=== PATIENT | male | born 1945 | race Caucasian/White ===

== ENCOUNTER 2023-03-22 08:38 | Outpatient (CLI) | payer MEDICARE, MEDICAID, SELFPAY | END 2023-03-22 08:39 | disposition home or self-care (01) | LOC: AMB 03-28 15:47 | PROVIDERS: Visit Provider Family Medicine | DX: R53.1 Weakness (principal) | CPT/HCPCS: A0998 ==

== ENCOUNTER 2023-11-27 11:56 | Outpatient (CLI) | payer MEDICARE, MEDICAID, SELFPAY | END 2023-11-27 11:57 | disposition home or self-care (01) | LOC: AMB 12-03 13:24 | PROVIDERS: PCP Family Medicine; Visit Provider Emergency Medicine | DX: M54.9 Dorsalgia, unspecified (principal); R11.2 Nausea with vomiting, unspecified | CPT/HCPCS: A0425; A0427 ==

== ENCOUNTER 2023-11-27 12:41 | Inpatient (IN) | payer MEDICARE, MEDICAID, SELFPAY ==
[2023-11-27 13:01] VITALS: BP 105/78; PULSE 95; RESP 16; TEMP 37.1; O2SAT 98; BMI 26.5
--- NOTE | 2023-11-27 13:12 | XR_ITS ---
Patient: RENITA GARCIA Facility:?[facility] Patient ID:?[id number] Site Patient ID:?[id number]. Site :?[id number] Study:?XRay-Chest 1 VIEW PORTABLE-11/27/2023 1:59:33 PM Ordering Physician:DIANDRA Final Report: Indication: Cough Technique: One view of the chest Comparison: None Findings: The heart is normal in size. Likely moderate hiatal hernia. Right mid to lower lung zone airspace opacities, concerning for pneumonia in the appropriate clinical context, likely with component of atelectasis. Trace left basilar linear atelectasis/scarring. No pleural effusion or pneumothorax. No displaced fractures. Impression: Right mid to lower lung zone airspace opacities, concerning for pneumonia. Dictated by Chandu Rankin MD @ 11/27/2023 2:03:57 PM Signed by:?Chandu Rankin MD @11/27/2023 2:03:57 PM (Electronic Signature)
[2023-11-27] MEDS: MORPHINE 4 MG/ML INJ IVP (13:40)
--- NOTE | 2023-11-27 13:41 | ED.GENADULT ---
HPI - General Adult General Date Seen: 11/27/23 Chief complaint: Weakness Stated complaint: Mental Health Time Seen by Provider: 11/27/23 12:43 Source: patient, EMS and RN notes reviewed Mode of arrival: ambulatory Limitations: no limitations History of Present Illness HPI narrative: Patient is a 78-year-old male with longstanding MS, lives at home with his , Lucila. When he called 911 today secondary to weakness and chronic pain for the patient, notes that these have both been issues longstanding, he tells me 6 years. He does say that he feels as if things have gotten gradually worse, to the point that his , his primary school bus dispatcher, is overwhelmed. He made a comment to police about how he just wished he was , he does agree with that statement to me, he does feels that he has been dealing with all of this for so long and is feeling somewhat hopeless about his circumstances. However he also says he is not at all suicidal and does not have any plan to do himself harm. He did have a recent upper respiratory infection with cough and wheezing, he says he got sick on November 11. He feels that the respiratory symptoms are improving but he still using his inhaler he says 10-15 times a day, and the weakness is worse since this illness. He has not run fevers. He occasionally feels short of breath although not right now. He has not had chest pain. He has not had vomiting or diarrhea, feels he has been able to eat and drink without difficulty. He does say that he feels it is becoming difficult for his to manage things at home. He said they had home health start coming about a year ago to do some physical therapy and he did find that helpful, but more recently feels that he is declined. He sees Dr. Serra, met with her in a virtual visit at some point this spring but he is not quite sure when. They apparently did not discuss any of these issues according to his report. He has chronic pain, he says he has pain throughout his pelvis, of his spine and across his shoulders. This is longstanding. He says he takes tramadol and Tylenol but pain is not controlled. Related Data Home Medications Medication Instructions Recorded Confirmed acetaminophen 650 mg 1,300 mg PO Q8H 11/27/23 11/27/23 tablet,extended release albuterol sulfate 90 mcg/actuation 2 inh inhalation Q4H PRN 11/27/23 11/27/23 aerosol inhaler cetirizine 10 mg tablet (Zyrtec) 10 mg PO DAILY PRN 11/27/23 11/27/23 fluoxetine 40 mg capsule 40 mg PO DAILY 11/27/23 11/27/23 fluticasone 500 mcg-salmeterol 50 1 inh inhalation BID 11/27/23 11/27/23 mcg/dose blistr powdr for inhalation (Advair Diskus) montelukast 10 mg tablet 10 mg PO DAILY 11/27/23 11/27/23 tramadol 50 mg tablet 50 mg PO TID 11/27/23 11/27/23 Allergies Allergy/AdvReac Type Severity Reaction Status Date / Time No Known Drug Allergies Allergy Verified 11/27/23 13:50 Review of Systems Status of ROS: Reports: 10 or more systems reviewed and unremarkable except as noted in History and below Exam Narrative: Exam Narrative: Vital signs as noted above. In general, an alert, nontoxic male. Being easily. Head: Normocephalic, atraumatic. Eyes: Pupils are equal reactive. Extraocular movements are full. Conjunctivae are normal. ENT: Mucous membranes are moist. Neck: Supple without lymphadenopathy. Heart: Regular rate and rhythm. No murmur or rub. Lungs: Scattered coarse breath sounds bilaterally, no wheezes, no increased work of breathing. Abdomen: Soft and nontender. No organomegaly. Extremities: Well perfused. No edema. No calf tenderness. Pulses intact. Neurologic: Patient is alert and oriented to person and place. Speech is fluent. Face is symmetric. Moves all extremities equally. Affect: Normal. Skin: Warm and dry. Well perfused. Const: Vital Signs, click to edit/add: Vital Signs - 24 hr 11/27/23 13:01 Temperature 98.7 F Pulse Rate [Pulse Oximeter] 95 Respiratory Rate 16 Blood Pressure [Ri ght Upper Arm] 105/78 Pulse Oximetry 98 Oxygen Delivery Me thod Room Air Documenting provider has reviewed patient's vital signs: yes Course Course ED Course: Patient presents for acute on chronic weakness secondary to MS, poorly controlled chronic pain, despondency due to his health status. He did have a recent illness, I think it is reasonable to look for reversible facets of this, will get a chest x-ray, routine labs to include CRP and sed rate. Disposition pending depending on what we find there, it sounds as if he feels that he is failing at home at this time, but they have not made any plans toward placement in a different living arrangement. Patient's workup is notable for a mildly elevated white blood cell count of 11.5, hemoglobin is 9.3. He is not sure what his baseline is but does not believe he is usually anemic. Metabolic panel notable for a sodium of 135, potassium 3.4, BUN of 38, creatinine 0.5. Blood sugars 124. Lactate is normal at 1.8. Calcium is little low at 7.8. Magnesium normal. LFTs are unremarkable. CRP is 1.9, sed rate is pending. COVID, influenza and RSV are negative, point of care troponin is 0.01. Chest x-ray by my review showed a right lower lobe infiltrate, read as right mid lower lung zone airspace opacities concerning for pneumonia by Radiology. I do think it is reasonable to admit him to the hospital, hopefully as his pneumonia improves he will feel like his strength is a little bit improved. Otherwise, may need to have a conversation about alternative living arrangements. Sed rate is still pending, he has had this chronic pain for quite some time but I am unsure whether anyone has specifically looked for polymyalgia rheumatica. I did give him prednisone as he says he has been using his inhaler frequently. I do not hear any active bronchospasm right now. He had Rocephin 1 g IV as well as azithromycin 500 mg orally. He does not describe symptoms that are suspicious for aspiration, he is unaware of any swallowing difficulties. Vital Signs Vital signs: Initial Vital Signs Temperature 98.7 F 11/27/23 13:01 Temperature Source Temporal Artery Scan 11/27/23 13:01 Pulse Rate 95 11/27/23 13:01 Pulse Rhythm Regular 11/27/23 13:01 Pulse Strength 3+ Normal 11/27/23 13:01 Respiratory Rate 16 11/27/23 13:01 Blood Pressure 105/78 11/27/23 13:01 Blood Pressure Mean 87 11/27/23 13:01 Blood Pressure Position Supine 11/27/23 13:01 Pulse Oximetry 98 11/27/23 13:01 Oxygen Delivery Method Room Air 11/27/23 13:01 Vital Signs Temperature 98.7 F 11/27/23 13:01 Pulse Rate 95 11/27/23 13:01 Respiratory Rate 16 11/27/23 13:01 Blood Pressure 105/78 11/27/23 13:01 Pulse Oximetry 98 11/27/23 13:01 Oxygen Delivery Method Room Air 11/27/23 13:01 Temperature 98.7 F 11/27/23 13:01 Pulse Rate 95 11/27/23 13:01 Respiratory Rate 16 11/27/23 13:01 Blood Pressure 105/78 11/27/23 13:01 Pulse Oximetry 98 11/27/23 13:01 Oxygen Delivery Method Room Air 11/27/23 13:01 Medications Administered Medications: Discontinued Medications Generic Name Dose Route Start Last Admin Trade Name Gageq PRN Reason Stop Dose Admin Azithromycin 500 mg 11/27/23 14:28 11/27/23 14:50 Azithromycin 250 Mg Tablet PO 11/27/23 14:29 500 mg ONCE ONE Administration Sodium Chloride 500 mls @ 500 mls/hr 11/27/23 13:17 11/27/23 14:22 0.9 % Sodium Chloride 500 Ml IV 11/27/23 14:16 Infused .Q1H ONE Infusion Ceftriaxone Sodium 1 gm/ 100 mls @ 200 mls/hr 11/27/23 14:28 11/27/23 14:50 Sodium Chloride IVPB 11/27/23 14:29 200 mls/hr ONCE ONE Administration Morphine Sulfate 4 mg 11/27/23 13:17 11/27/23 13:40 Morphine 4 Mg/Ml Inj IVP 11/27/23 13:18 4 mg ONCE ONE Administration Prednisone 60 mg 11/27/23 14:28 11/27/23 14:50 Prednisone 20 Mg Tablet PO 11/27/23 14:29 60 mg ONCE ONE Administration Medical Decision Making Lab Data Labs: Lab Results 11/27/23 11/27/23 11/27/23 Range/Units 13:13 13:14 13:32 WBC (4.50-11.00) K/uL RBC (4.30-5.90) m/uL Hgb (13.5-17.5) gm/dL Hct (37.0-53.0) % MCV (80-100) fL MCH (26-34) pg MCHC (32-36) gm/dL RDW Coeff of Danilo (11.5-15.5) % Plt Count (140-440) K/uL Neut % (Auto) (42.0-72.0) % Lymph % (Auto) (20-44) % [place] % (Auto) (0.0-11.0) % Eos % (Auto) (0.0-7.0) % Baso % (Auto) (0.0-3.0) % Neut # (Auto) (1.7-7.0) K/uL Lymph # (Auto) (0.90-2.90) K/uL [place] # (Auto) (0.00-0.90) K/UL Eos # (Auto) (0.00-0.50) K/uL Baso # (Auto) (0.00-0.30) K/uL Abs Immat Gran (auto) (0.00-0.30) K/uL Imm/Tot Granulo (auto) % ESR (2-15) mm/hr Sodium (135-149) mmol/L Potassium (3.6-5.1) mmol/L Chloride (96-114) mmol/L Carbon Dioxide (20-32) mmol/L Anion Gap (7-15) mEq/L BUN (7-30) mg/dL Creatinine (0.5-1.5) mg/dL Estimated Creat Clear Estimated GFR ml/min Glucose (60-115) mg/dL Lactate (0.5-1.9) mmol/L Calcium (8.4-10.6) mg/dL Magnesium (1.5-2.6) mg/dL Total Bilirubin (0.1-1.5) mg/dL Direct Bilirubin (0.0-0.5) mg/dL AST (12-35) U/L ALT (4-50) U/L Alkaline Phosphatase (40-150) U/L C-Reactive Protein (0.5-1.0) mg/dL Total Protein (6.0-8.3) g/dL Albumin (3.3-5.0) g/dL Urine Color Yellow (Yellow) Urine Appearance Clear (Clear) Urine pH 6.0 (5.0-8.5) Ur Specific [place] 1.010 (1.000-1.030) Urine Protein Negative (Negative) Urine Glucose (UA) Negative (Negative) Urine Ketones Negative (Negative) Urine Blood Negative (Negative) Urine Nitrite Negative (Negative) Urine Bilirubin Negative (Negative) Urine Urobilinogen 1.0 (0.2-1.0) Ur Leukocyte Esterase 1+ A (Negative) SARS-CoV-2 (PCR) Negative SARS-CoV-2 (Negative) Influenza Type A (PCR) Negative PCR FLU A (Negative) Influenza Type B (PCR) Negative PCR FLU B (Negative) RSV (PCR) Negative PCR RSV (Negative) POC Troponin I 0.01 (0.01-0.04) ng/ml 11/27/23 Range/Units 13:34 WBC 11.56 H (4.50-11.00) K/uL RBC 2.93 L (4.30-5.90) m/uL Hgb 9.3 L (13.5-17.5) gm/dL Hct 28.5 L (37.0-53.0) % MCV 97 (80-100) fL MCH 32 (26-34) pg MCHC 33 (32-36) gm/dL RDW Coeff of Danilo 13.2 (11.5-15.5) % Plt Count 306 (140-440) K/uL Neut % (Auto) 76.3 H (42.0-72.0) % Lymph % (Auto) 11.4 L (20-44) % [place] % (Auto) 10.5 (0.0-11.0) % Eos % (Auto) 0.0 (0.0-7.0) % Baso % (Auto) 0.2 (0.0-3.0) % Neut # (Auto) 8.80 H (1.7-7.0) K/uL Lymph # (Auto) 1.30 (0.90-2.90) K/uL [facility] # (Auto) 1.20 H (0.00-0.90) K/UL Eos # (Auto) 0.00 (0.00-0.50) K/uL Baso # (Auto) 0.00 (0.00-0.30) K/uL Abs Immat Gran (auto) 0.20 (0.00-0.30) K/uL Imm/Tot Granulo (auto) 1.6 % ESR 30 H (2-15) mm/hr Sodium 135 (135-149) mmol/L Potassium 3.4 L (3.6-5.1) mmol/L Chloride 101 (96-114) mmol/L Carbon Dioxide 28 (20-32) mmol/L Anion Gap 6 L (7-15) mEq/L BUN 38 H (7-30) mg/dL Creatinine 0.5 (0.5-1.5) mg/dL Estimated Creat Clear 64.89 Estimated GFR 106 ml/min Glucose 124 H (60-115) mg/dL Lactate 1.8 (0.5-1.9) mmol/L Calcium 7.8 L (8.4-10.6) mg/dL Magnesium 2.2 (1.5-2.6) mg/dL Total Bilirubin 0.4 (0.1-1.5) mg/dL Direct Bilirubin 0.3 (0.0-0.5) mg/dL AST 20 (12-35) U/L ALT 20 (4-50) U/L Alkaline Phosphatase 47 (40-150) U/L C-Reactive Protein 1.9 H (0.5-1.0) mg/dL Total Protein 5.6 L (6.0-8.3) g/dL Albumin 2.9 L (3.3-5.0) g/dL Urine Color (Yellow) Urine Appearance (Clear) Urine pH (5.0-8.5) Ur Specific [place] (1.000-1.030) Urine Protein (Negative) Urine Glucose (UA) (Negative) Urine Ketones (Negative) Urine Blood (Negative) Urine Nitrite (Negative) Urine Bilirubin (Negative) Urine Urobilinogen (0.2-1.0) Ur Leukocyte Esterase (Negative) SARS-CoV-2 (PCR) (Negative) Influenza Type A (PCR) (Negative) Influenza Type B (PCR) (Negative) RSV (PCR) (Negative) POC Troponin I (0.01-0.04) ng/ml Discharge Plan Discharge Clinical Impression: Weakness, Multiple sclerosis, Pneumonia Patient Disposition: Admitted As Observation Condition: Stable
[2023-11-27 13:53] LABS: Lactate Sepsis w/Reflex* 1.8 mmol/L (0.5-1.9)
[2023-11-27 13:56] LABS: Basophils Percent Auto 0.2 % (0.0-3.0); Hematocrit 28.5 % (37.0-53.0); Hemoglobin* 9.3 gm/dL (13.5-17.5); Immature Granulocytes Pct Auto 1.6 %; Lymphocytes Percent Auto 11.4 % (20-44); Mean Corpuscular HGB Conc 33 gm/dL (32-36); Mean Corpuscular Hemoglobin 32 pg (26-34); Mean Corpuscular Volume 97 fL (80-100); Monocytes Percent Auto 10.5 % (0.0-11.0); Neutrophils Percent Auto 76.3 % (42.0-72.0); Platelet Count* 306 K/uL (140-440); RDW Coefficient of Variation % 13.2 % (11.5-15.5); Red Blood Count 2.93 m/uL (4.30-5.90); White Blood Count* 11.56 K/uL (4.50-11.00)
[2023-11-27] MEDS: 0.9 % SODIUM CHLORIDE 500 ML 500 ML IV (14:00)
[2023-11-27 14:01] LABS: Troponin, Point-of-Care* 0.01 ng/ml (0.01-0.04)
[2023-11-27 14:03] LABS: Slide Review Reflex No
[2023-11-27 14:08] LABS: Albumin* 2.9 g/dL (3.3-5.0); Chloride* 101 mmol/L (96-114)
[2023-11-27 14:09] LABS: Potassium* 3.4 mmol/L (3.6-5.1); Sodium* 135 mmol/L (135-149)
[2023-11-27 14:11] LABS: Anion Gap 6 mEq/L (7-15); Aspartate Amino Transferase* 20 U/L (12-35); Bilirubin Direct* 0.3 mg/dL (0.0-0.5); Bilirubin Total* 0.4 mg/dL (0.1-1.5); Carbon Dioxide* 28 mmol/L (20-32); Creatinine* 0.5 mg/dL (0.5-1.5); Est. Creatinine Clearance* 64.89; Estimated Glomerular Filt Rate 106 ml/min; Total Protein* 5.6 g/dL (6.0-8.3)
[2023-11-27 14:12] LABS: Alanine Aminotransferase* 20 U/L (4-50); Alkaline Phosphatase* 47 U/L (40-150); Blood Urea Nitrogen* 38 mg/dL (7-30); Calcium* 7.8 mg/dL (8.4-10.6); Glucose* 124 mg/dL (60-115); Magnesium* 2.2 mg/dL (1.5-2.6)
[2023-11-27 14:14] LABS: C Reactive Protein* 1.9 mg/dL (0.5-1.0)
[2023-11-27 14:17] LABS: PCR FLU A Negative PCR FLU A (Negative); PCR FLU B Negative PCR FLU B (Negative); PCR RSV Negative PCR RSV (Negative); SARS PCR* Negative SARS-CoV-2 (Negative)
[2023-11-27] MEDS: cefTRIAXone 1 GM in 0.9 % SODIUM CHLORIDE Mini-bag 100 ML IVPB (14:50)
[2023-11-27] MEDS: predniSONE 20 MG TABLET 60 MG PO (14:50)
[2023-11-27] MEDS: AZITHROMYCIN 250 MG TABLET 500 MG PO (14:50)
[2023-11-27 14:54] LABS: Erythrocyte SedimentationRate* 30 mm/hr (2-15)
[2023-11-27 16:20] LABS: Appearance Urine Clear (Clear); Bilirubin Urine Negative (Negative); Blood Urine Negative (Negative); Color Urine Yellow (Yellow); Glucose Urine Negative (Negative); Ketones Urine Negative (Negative); Leukocyte Esterase Urine 1+ (Negative); Nitrite Urine Negative (Negative); Protein Urine Negative (Negative)
[2023-11-27 16:34] LABS: RBC Urine 0-2 (0-2)
[2023-11-27 16:35] LABS: Bacteria Urine Moderate
[2023-11-27 16:45] VITALS: BP 91/65; PULSE 95; RESP 20; TEMP 36.9; O2SAT 97; BMI 27.2
[2023-11-27 19:00] VITALS: BP 97/68; PULSE 93; RESP 22; TEMP 37.4; O2SAT 98
--- NOTE | 2023-11-27 19:32 | PM.IMHP1 ---
Hospitalist- H&P: HPI History of Present Illness Date Seen: 11/27/23 Chief complaint: Mental Health Narrative: James Starks is a 78 year old man who ordinarily resides at home with his , Lucila, presents for assessment of increasing weakness. 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 He is gradually losing his ability to care for himself. His is assuming greater and greater responsibility for all of his cares at home. About 2 weeks ago he started to notice that his chronic cough was productive of thicker sputum. Ordinarily it is clear and thin. Over time the sputum color became green. He has been using his albuterol meter dose inhaler with increased frequency up to 15 times daily in an effort to try to help his cough and sense of wheezing. He does not administer is inhaler with an supervisor customer complaint service or chamber. His chronic pain has increased also during the same time frame. Able to get by for the most part by taking his tramadol 50 mg and acetaminophen 650 mg 3 times daily. He tries to take these every 8 hours. Denies fevers or rigors. Has had episodes of diaphoresis however. Acknowledges a sense of increasing dyspnea with exertion. Denies dyspnea at rest. Denies paroxysmal nocturnal dyspnea or orthopnea. Denies chest heaviness, pressure, tightness, or pain. Review of Systems Status of ROS: Reports: 10 or more systems reviewed and unremarkable except as noted in History and below Narrative: Does not routinely seek out medical help. Has not seen his physician in person for a few years. Did have a virtual visit with his primary care physician, Dr. Serra, on 09/04/2023. Requires extensive assist with most of his ADLs. Utilizes wheelchair for locomotion. Denies night sweats or weight loss. Denies change in pattern of bowel or bladder function. Denies swelling of joints or extremities. Has been using fluoxetine for several years due to depressed symptoms. Acknowledges increased sense of depression and hopelessness as his condition has been evolving over the last 2 weeks. Denies suicidal thoughts or ideations, or plans to hurt himself in any way. States in no uncertain terms that if he were to he is prepared and ready for this. On the other hand he states if we can help him through this that he would also be grateful. Requests DNR DNI resuscitation status. Designates his , Lucila, as his power of contracts attorney for health should that be required. [facility] Medical History (Updated 11/27/23 @ 20:08 by Zenon Phillips MD) History of tobacco use ?Z87.891 - Personal history of nicotine dependence (ICD-10) Edema of both lower extremities ?R60.0 - Localized edema (ICD-10) Anxiety and depression ?F41.9 - Anxiety disorder, unspecified (ICD-10) ?F32.A - Depression, unspecified (ICD-10) Moderate persistent asthma ?J45.40 - Moderate persistent asthma, uncomplicated (ICD-10) History of lower GI bleeding ?Z87.19 - Personal history of other diseases of the digestive system (ICD-10) Chronic pain ?G89.29 - Other chronic pain (ICD-10) Osteoarthritis, hip, bilateral ?M16.0 - Bilateral primary osteoarthritis of hip (ICD-10) Multiple sclerosis, primary progressive ?G35 - Multiple sclerosis (ICD-10) Family History Son Anxiety Social History What is your current living situation?: I presently have a place to live Problems where you live: no known problems Problems where you live details: unable to bring W/C into bathroom In the past 12 months, utilities in danger of being shut off: no In past 12 months, lack of transportation kept you from medical appts, meetings, work, or getting things needed for daily living: no In the past 12 mos, have been you worried that your food would run out before you had money to buy more?: never true In the past 12 mos, the food you bought just didn't last and you didn't have money to buy more?: never true Smoking Status: Former smoker What tobacco products do you use: cigarettes Smoking quit date/years: >15 years ago Do you use any of these nicotine containing products: None Second hand tobacco smoke exposure: No How often do you have a drink containing alcohol: never How often do you have six or more drinks on one occasion: Never AUDIT-C Alcohol total score: 0 Non-prescribed substance use: marijuana (any form) Non-prescribed substance use details: medical cannabis- tea & edibles Caffeine: Yes (coffee) How often does anyone, including family, friends and others, physically hurt you: never How often does anyone, including family, friends and others, insult or talk down to you: never How often does anyone, including family, friends and others, threaten you with harm: never How often does anyone, including family, friends and others, scream or curse at you: never service: No Meds Home Medications and Allergies Home Medications Medication Instructions Recorded Confirmed Type acetaminophen 650 mg 1,300 mg PO Q8H 11/27/23 11/27/23 History tablet,extended release albuterol sulfate 90 mcg/actuation 2 inh inhalation Q4H PRN 11/27/23 11/27/23 History aerosol inhaler cetirizine 10 mg tablet (Zyrtec) 10 mg PO DAILY PRN 11/27/23 11/27/23 History fluoxetine 40 mg capsule 40 mg PO DAILY 11/27/23 11/27/23 History fluticasone 500 mcg-salmeterol 50 1 inh inhalation BID 11/27/23 11/27/23 History mcg/dose blistr powdr for inhalation (Advair Diskus) montelukast 10 mg tablet 10 mg PO DAILY 11/27/23 11/27/23 History tramadol 50 mg tablet 50 mg PO TID 11/27/23 11/27/23 History Allergies Allergy/AdvReac Type Severity Reaction Status Date / Time No Known Drug Allergies Allergy Verified 11/27/23 13:50 Exam Narrative: Exam Narrative: I examined patient in his hospital room. Appears comfortable and in no acute distress. Vision and hearing are adequate. Does have decreased hearing, but certainly able to engage in normal conversation. Alert, oriented to self, place, time, situation. Purse lip breathing. Utilizing accessory muscles of respiration. Cranial nerves 3-12 grossly normal. Dentition in fair repair with some missing teeth. Oropharynx benign. Nasal mucosa is normal. No icterus or conjunctival injection. Neck is supple. Midline trachea. No adenopathy in the head or neck region. Lungs with end inspiratory wheezing as well as mild expiratory wheezing bilaterally. Heart tones with regular rhythm and occasional missed beats. Abdomen with active bowel sounds, soft, nontender. Extremities with edema. Generally weak. Requires assistance with moving on the bed. Const: Vital Signs, click to edit/add: Vital Signs - 24 hr 11/27/23 13:01 11/27/23 16:45 11/27/23 16:45 Temperature 98.7 F 98.5 F Pulse Rate [Pulse Oximeter] 95 95 Respiratory Rate 16 20 20 Blood Pressure [Ri ght Arm] 91/65 Blood Pressure [Ri ght Upper Arm] 105/78 Pulse Oximetry 98 97 97 Oxygen Delivery Me thod Room Air Room Air Room Air Hospitalist - H&P: Result Labs Labs: Short CBC 11/27/23 Range/Units 13:34 WBC 11.56 H (4.50-11.00) K/uL Hgb 9.3 L (13.5-17.5) gm/dL Hct 28.5 L (37.0-53.0) % Plt Count 306 (140-440) K/uL BMP 11/27/23 13:34 Sodium 135 Potassium 3.4 L Chloride 101 Carbon Dioxide 28 BUN 38 H Creatinine 0.5 Glucose 124 H Calcium 7.8 L Liver Function 11/27/23 Range/Units 13:34 Total Bilirubin 0.4 (0.1-1.5) mg/dL Direct Bilirubin 0.3 (0.0-0.5) mg/dL AST 20 (12-35) U/L ALT 20 (4-50) U/L Alkaline Phosphatase 47 (40-150) U/L Albumin 2.9 L (3.3-5.0) g/dL Urine 11/27/23 Range/Units 13:14 Urine Color Yellow (Yellow) Urine Appearance Clear (Clear) Urine pH 6.0 (5.0-8.5) Ur Specific [place] 1.010 (1.000-1.030) Urine Protein Negative (Negative) Urine Glucose (UA) Negative (Negative) Imaging Chest x-ray: Attestation: I have reviewed the pertinent imaging results. Radiologist's impression: Impression: Right mid to lower lung zone airspace opacities, concerning for pneumonia. Assessment and Plan Assessment and plan (1) Right lower lobe pneumonia: Problem comment: - blood cultures obtained. - ceftriaxone 1 g IV Q 24 hours, azithromycin 500 mg orally once than 250 mg daily for 4 more doses. Status: Acute (2) Asthma exacerbation: Problem comment: - prednisone 60 mg orally given in the emergency department. Will continue on prednisone 30 mg daily for 4 more days. - schedule albuterol nebulizers 3 times daily and continue with p.r.n. albuterol meter dose inhaler administration. - respiratory therapy consultation: Teach proper administration of meter dose inhaler with spacer, teach appropriate use of Aerobika device. - normal saline x2 L at 125 mL/hour Status: Acute (3) Anemia: Problem comment: - this is new. Hemoglobin on 08/10/2018 was 16.2 with MCV of 87 and RDW of 13.2. Presently his hemoglobin is 9.3 with MCV of 97 and RDW of 13.2. - check fecal occult blood, monitor hemoglobin, check iron studies, folate level, vitamin B12 level. Status: Acute (4) Multiple sclerosis, primary progressive: Problem comment: - first diagnosed in 2018. Progressively worsening over time. - not receiving active treatment for this. Status: Acute (5) Weakness: Problem comment: - this has been progressing rather rapidly over course of the past 2 weeks since he has had the onset of his pneumonia symptoms. - likely multifactorial from underlying multiple sclerosis, but may be worsening because of the acute illness with the pneumonia, also related to his low hemoglobin. - will ask Physical therapy and Occupational therapy to assist with assessment and intervention. - initiated discussion with patient and about the possibility of short-term residential facility transitional care services. They will consider this. Status: Acute (6) Chronic pain: Problem comment: - known bilateral hip osteoarthritis. May have polymyalgia rheumatica. We are starting prednisone to treat his asthma flare up and will see if this helps with some of his aches and pains and arthralgias as well. Status: Acute Plan 1. Reviewed impression and plans with patient and . Answered their questions. 2. They are agreeable with above stated plans and recommendations. Total Time Spent Total Time Spent: 70 minutes
[2023-11-27] MEDS: TRAMADOL HCL 50 MG TABLET PO ×2 (19:54→23:11)
[2023-11-27] MEDS: 0.9 % SODIUM CHLORIDE 1000 ml 1,000 ML 125 ML IV (19:55)
[2023-11-27] MEDS: ACETAMINOPHEN 325 MG TABLET 650 MG PO (21:53)
[2023-11-27] MEDS: ALBUTEROL SULFATE 2.5 MG/3 ML VIAL.NEB NEB (21:54)
[2023-11-27] MEDS: ENOXAPARIN 30 MG/0.3ML INJ SUBCUT (21:54)
--- NOTE | 2023-11-27 23:05 | PC.NURSE ---
End of shift [id number]: Pt arrived to floor @ 1515. He is A&O and VSS. H/o MS- pt is W/C bound baseline but he is able to pivot to chair or W/C at home. Utilizing Jerad lift Ax2 for transfers. Pt is incontinent/continent of urine ? uses the urinal independently in bed. Total incontinence of bowels. Pt had a small BM upon arrival this afternoon and none since- Fecal Occult has yet to be collected. Low-grade fever this evening, T-max 99.3- scheduled Tylenol given @ 2155. PIV in left FA infusing NS @ 125 mL/hr. Pt has chronic pain r/t progression of disease- rates pain at 8/10 and located from his hips up his spine to his posterior neck. Pt takes tramadol at home & missed his 1400 dose so he was given a 1x dose @ 2000 which in turn, pushed his scheduled 2100 dose back to 2300. LLE 3+ edema and RLE 2+ edema- TEDS applied & SCD?s in place. LS inspiratory & expiratory wheezing with a productive cough. Droplet precautions initiated for PNX. ?
[2023-11-27 23:42] VITALS: BP 96/65; PULSE 93; RESP 20; TEMP 37.3; O2SAT 91; O2SAT 96
[2023-11-28] VITALS (11 sets, daily range): BP systolic 90–138; BP diastolic 53–84; PULSE 69–93; RESP 12–20; TEMP 36.4–37.5; O2SAT 90–99
[2023-11-28] MEDS: ACETAMINOPHEN 325 MG TABLET 650 MG PO ×4 (03:11→20:20)
[2023-11-28] MEDS: MELATONIN 3 MG TABLET PO (03:37)
[2023-11-28] MEDS: 0.9 % SODIUM CHLORIDE 1000 ml 1,000 ML 125 ML IV (03:41)
[2023-11-28 06:15] LABS: HCO3 VBG 30 mmol/L (21-28); Lactate* 1.2 mmol/L (0.5-1.9); PCO2 VBG 43 mmHG (40-50); PO2 VBG 50.8 mmHG (25-47); pH VBG 7.458 (7.32-7.43)
[2023-11-28 06:19] LABS: Hematocrit 22.1 % (37.0-53.0); Immature Reticulocyte Fraction 21.3 % (2.3-13.4); Mean Corpuscular HGB Conc 33 gm/dL (32-36); Mean Corpuscular Hemoglobin 32 pg (26-34); Mean Corpuscular Volume 97 fL (80-100); Platelet Count* 266 K/uL (140-440); Red Blood Count 2.28 m/uL (4.30-5.90); Reticulocyte Hemoglobin Equivi 33.8 pg (29.0-35.0); Reticulocyte Percent 2.4 % (0.5-2.0); Reticulocytes Absolute 0.06 # (0.03-0.08); White Blood Count* 9.92 K/uL (4.50-11.00)
[2023-11-28 06:23] LABS: Hemoglobin* 7.2 gm/dL (13.5-17.5); Slide Review Reflex No
[2023-11-28 06:36] LABS: Chloride* 103 mmol/L (96-114); Potassium* 3.6 mmol/L (3.6-5.1); Sodium* 135 mmol/L (135-149)
[2023-11-28 06:39] LABS: Anion Gap 1 mEq/L (7-15); Blood Urea Nitrogen* 27 mg/dL (7-30); Carbon Dioxide* 31 mmol/L (20-32); Creatinine* 0.5 mg/dL (0.5-1.5); Est. Creatinine Clearance* 64.89; Estimated Glomerular Filt Rate 106 ml/min
[2023-11-28 06:40] LABS: Calcium* 7.7 mg/dL (8.4-10.6); Glucose* 115 mg/dL (60-115); Magnesium* 2.2 mg/dL (1.5-2.6); Phosphorus* 3.2 mg/dL (2.5-4.5)
[2023-11-28 06:50] LABS: Iron* 91 ug/dL (49-181)
[2023-11-28 06:55] LABS: Procalcitonin* 0.07 ng/mL (<0.50)
[2023-11-28 06:59] LABS: Percent Iron Saturation 43 % (20-50); Total Iron Binding Capacity 211 ug/dL (261-462)
[2023-11-28 07:28] LABS: Vitamin B12* 489 pg/mL (243-894)
--- NOTE | 2023-11-28 07:30 | PM.IMPN1 ---
Progress Note: A&P Assessment and plan (1) Anemia: Problem details: - this is new. Hemoglobin on 08/10/2018 was 16.2 with MCV of 87 and RDW of 13.2. Presently his hemoglobin is 9.3 with MCV of 97 and RDW of 13.2. - check fecal occult blood - Hgb down to 7.2 on 11/28/23; patient amenable to transfusion of 1U PRBCs. PPI initiated 11/27, EGD scheduled 11/27 Status: Acute (2) Right lower lobe pneumonia: Problem details: - blood cultures obtained - ceftriaxone 1 g IV Q 24 hours, azithromycin 500 mg orally once than 250 mg daily for 4 more doses Status: Acute (3) Asthma exacerbation: Problem details: - prednisone 60 mg orally given in the emergency department. Will continue on prednisone 30 mg daily for 4 more days. - schedule albuterol nebulizers 3 times daily and continue with p.r.n. albuterol meter dose inhaler administration. - respiratory therapy consultation: Teach proper administration of meter dose inhaler with spacer, teach appropriate use of Aerobika device. - normal saline x2 L at 125 mL/hour Status: Acute (4) Multiple sclerosis, primary progressive: Problem details: - first diagnosed in 2018. Progressively worsening over time. - not receiving active treatment for this. Status: Acute (5) Weakness: Problem details: - this has been progressing rather rapidly over course of the past 2 weeks since he has had the onset of his pneumonia symptoms - likely multifactorial from underlying multiple sclerosis, but may be worsening because of the acute illness with the pneumonia, also related to his low hemoglobin - will ask Physical therapy and Occupational therapy to assist with assessment and intervention - initiated discussion with patient and about the possibility of short-term detention facility transitional care services, considering Status: Acute (6) Chronic pain: Problem details: - known bilateral hip osteoarthritis, pain flare may represent PMR (microcytic anemia and elevated ESR on labs drawn 11/27/23) - Prednisone initiated 11/26, will continue to evaluate for pain management efficacy Status: Acute Subjective Date Seen: 11/28/23 Interval history: James was admitted to the hospital last night for progressive weakness and cough + sputum. He was noted to have pneumonia (presumably community acquired) on CXR 11/26, Rocephin and Azithromycin initiated upon admission. Not requiring supplemental oxygen. He was also noted to have anemia with a Hemoglobin of 9.3 (unknown recent baseline, per chart review his Hgb was >16 in 2018). No melena or BRBPR, no abdominal pain today. Did note that his stomach was sore last week, no known history of gastritis. This morning, he's still noting back pain (flare of chronic pain), possibly positional (normally sits in his wheelchair during the day, has been in the bed since admission), no other pain complaints. Morning Hemoglobin is 7.2 Exam Narrative: Exam Narrative: GEN: Alert and laying comfortably in bed, does not appear toxic HEENT: EOMIs bilaterally, + conjunctival pallor CV: RRR R: LCTA bilaterally, air movement adequate Skin: No concerning skin lesions or rashes on exposed skin Psych: Appropriate Const: Vital Signs, click to edit/add: Vital Signs - 24 hr 11/27/23 13:01 11/27/23 16:45 11/27/23 16:45 Temperature 98.7 F 98.5 F Pulse Rate [Pulse Oximeter] 95 95 Respiratory Rate 16 20 20 Blood Pressure [Le ft Arm] Blood Pressure [Ri ght Arm] 91/65 Blood Pressure [Ri ght Upper Arm] 105/78 Pulse Oximetry 98 97 97 Oxygen Delivery Me thod Room Air Room Air Room Air 11/27/23 19:00 11/27/23 23:42 11/27/23 23:42 Temperature 99.3 F Pulse Rate [Pulse Oximeter] 93 93 Respiratory Rate 22 20 20 Blood Pressure [Le ft Arm] Blood Pressure [Ri ght Arm] 97/68 Blood Pressure [Ri ght Upper Arm] Pulse Oximetry 98 96 Oxygen Delivery Me thod Room Air Room Air 11/27/23 23:42 11/28/23 03:00 Temperature 99.2 F 98.8 F Pulse Rate [Pulse Oximeter] 93 93 Respiratory Rate 20 20 Blood Pressure [Le ft Arm] 90/53 L Blood Pressure [Ri ght Arm] 96/65 Blood Pressure [Ri ght Upper Arm] Pulse Oximetry 91 92 Oxygen Delivery Me thod Room Air Room Air Labs Labs: Laboratory Results - last 24 hr 11/27/23 11/27/23 11/27/23 13:13 13:14 13:32 WBC RBC Hgb Hct MCV MCH MCHC RDW Coeff of Danilo Plt Count Neut % (Auto) Lymph % (Auto) [place] % (Auto) Eos % (Auto) Baso % (Auto) Neut # (Auto) Lymph # (Auto) [place] # (Auto) Eos # (Auto) Baso # (Auto) Abs Immat Gran (auto) Imm/Tot Granulo (auto) ESR Absolute Retic Percent Retic Immature Retic Fraction Retic Hgb Equivalent VBG pH VBG pCO2 VBG pO2 VBG HCO3 Sodium Potassium Chloride Carbon Dioxide Anion Gap BUN Creatinine Estimated Creat Clear Estimated GFR Glucose Lactate Calcium Phosphorus Magnesium Iron TIBC % Saturation Total Bilirubin Direct Bilirubin AST ALT Alkaline Phosphatase C-Reactive Protein Total Protein Albumin Procalcitonin Urine Color Yellow Urine Appearance Clear Urine pH 6.0 Ur Specific [place] 1.010 Urine Protein Negative Urine Glucose (UA) Negative Urine Ketones Negative Urine Blood Negative Urine Nitrite Negative Urine Bilirubin Negative Urine Urobilinogen 1.0 Ur Leukocyte Esterase 1+ A Urine RBC 0-2 Urine WBC 5-10 A Ur Squamous Epith Cells None Urine Bacteria Moderate A SARS-CoV-2 (PCR) Negative SARS-CoV-2 Influenza Type A (PCR) Negative PCR FLU A Influenza Type B (PCR) Negative PCR FLU B RSV (PCR) Negative PCR RSV POC Troponin I 0.01 11/27/23 11/28/23 13:34 05:52 WBC 11.56 H 9.92 RBC 2.93 L 2.28 L Hgb 9.3 L 7.2 L* Hct 28.5 L 22.1 L MCV 97 97 MCH 32 32 MCHC 33 33 RDW Coeff of Danilo 13.2 Plt Count 306 266 Neut % (Auto) 76.3 H Lymph % (Auto) 11.4 L [place] % (Auto) 10.5 Eos % (Auto) 0.0 Baso % (Auto) 0.2 Neut # (Auto) 8.80 H Lymph # (Auto) 1.30 [place] # (Auto) 1.20 H Eos # (Auto) 0.00 Baso # (Auto) 0.00 Abs Immat Gran (auto) 0.20 Imm/Tot Granulo (auto) 1.6 ESR 30 H Absolute Retic 0.06 Percent Retic 2.4 H Immature Retic Fraction 21.3 H Retic Hgb Equivalent 33.8 VBG pH 7.458 H VBG pCO2 43 VBG pO2 50.8 H VBG HCO3 30 H Sodium 135 135 Potassium 3.4 L 3.6 Chloride 101 103 Carbon Dioxide 28 31 Anion Gap 6 L 1 L BUN 38 H 27 Creatinine 0.5 0.5 Estimated Creat Clear 64.89 64.89 Estimated GFR 106 106 Glucose 124 H 115 Lactate 1.8 1.2 Calcium 7.8 L 7.7 L Phosphorus 3.2 Magnesium 2.2 2.2 Iron 91 TIBC 211 L % Saturation 43 Total Bilirubin 0.4 Direct Bilirubin 0.3 AST 20 ALT 20 Alkaline Phosphatase 47 C-Reactive Protein 1.9 H Total Protein 5.6 L Albumin 2.9 L Procalcitonin 0.07 Urine Color Urine Appearance Urine pH Ur Specific [place] Urine Protein Urine Glucose (UA) Urine Ketones Urine Blood Urine Nitrite Urine Bilirubin Urine Urobilinogen Ur Leukocyte Esterase Urine RBC Urine WBC Ur Squamous Epith Cells Urine Bacteria SARS-CoV-2 (PCR) Influenza Type A (PCR) Influenza Type B (PCR) RSV (PCR) POC Troponin I
--- NOTE | 2023-11-28 08:10 | PC.NURSE ---
End of shift note: pt pleasant and cooperative with care. AxO with slight confusion; repetitive questions. C/O pain to back and bilateral hips rating 8-9/10. pt restless and unable to sleep; PRN melatonin administered and effective. Repositioned Q2HR and PRN for comfort. offloading with pillows. incontinent of bowel and bladder. NS@125ml to Left AC. pt is trista lift; remained in bed throughout HS.
[2023-11-28] MEDS: predniSONE 10 MG TABLET 30 MG PO (09:08)
[2023-11-28] MEDS: SODIUM CHLORIDE 0.9 % (FLUSH) 10 ML SYRINGE 5 ML IVF ×2 (09:08→20:21)
[2023-11-28] MEDS: ALBUTEROL SULFATE 2.5 MG/3 ML VIAL.NEB NEB ×4 (09:08→20:21)
[2023-11-28] MEDS: AZITHROMYCIN 250 MG TABLET PO (09:09)
[2023-11-28] MEDS: MONTELUKAST 10 MG TABLET PO (09:09)
[2023-11-28] MEDS: FLUOXETINE HCL 20 MG CAPSULE 40 MG PO (09:09)
[2023-11-28] MEDS: OXYCODONE 5 MG TABLET PO ×3 (09:10→17:22)
[2023-11-28] MEDS: PANTOPRAZOLE SODIUM 40 MG INJ 80 MG IVP (09:17)
[2023-11-28] MEDS: cefTRIAXone 1 GM in 0.9 % SODIUM CHLORIDE Mini-bag 100 ML IVPB (09:17)
--- NOTE | 2023-11-28 13:21 | P.ANES_ITS ---
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
--- NOTE | 2023-11-28 14:15 | REH.PT ---
PT Eval & Treat Orders received and chart reviewed. Pt declined PT eval after EGD and asked automatic typewriter inspector to try again tomorrow.
[2023-11-28 16:33] LABS: Hemoglobin* 8.3 gm/dL (13.5-17.5)
[2023-11-28] MEDS: SUCRALFATE 1 GM TABLET PO ×2 (18:31→20:20)
--- NOTE | 2023-11-28 19:36 | PC.NURSE ---
shift note: vss stable. pt T&r for comfort throughout the day. Pt incont bladder. IV patent x2. LS rhonchi throughout with exp wheeze RML this a.m,. Pt had intermittent wet cough with moderate clear thick phlegm. LS with less course rhonchi this afternoon and cough sounding less wet. sats 90-92% RA. IS per formed to 1000. Pt received 1 unit PRB.
[2023-11-28] MEDS: TRAMADOL HCL 50 MG TABLET PO (20:20)
[2023-11-28] MEDS: OMEPRAZOLE 20 MG CAPSULE DR PO (20:21)
[2023-11-29] VITALS (12 sets, daily range): BP systolic 99–141; BP diastolic 62–83; PULSE 73–86; RESP 16–18; TEMP 36.3–36.9; O2SAT 90–995
[2023-11-29] MEDS: OXYCODONE 5 MG TABLET PO ×2 (03:13→06:40)
[2023-11-29] MEDS: ACETAMINOPHEN 325 MG TABLET 650 MG PO ×4 (03:15→20:39)
--- NOTE | 2023-11-29 05:10 | PC.NURSE ---
Pt calling numerous times throughout the night. Repositioned often. Incontinent of urine. Oriented. Afebrile. States he is feeling much better than previous day. Chronic pain controlled.
[2023-11-29] MEDS: SUCRALFATE 1 GM TABLET PO ×2 (06:36→20:39)
[2023-11-29] MEDS: OMEPRAZOLE 20 MG CAPSULE DR PO ×2 (06:36→20:39)
[2023-11-29 07:02] LABS: Basophils Absolute Auto 0.01 K/uL (0.00-0.30); Basophils Percent Auto 0.1 % (0.0-3.0); Hematocrit 23.5 % (37.0-53.0); Immature Granulocytes Abs Auto 0.08 K/uL (0.00-0.30); Immature Granulocytes Pct Auto 0.9 %; Lymphocytes Percent Auto 19.6 % (20-44); Mean Corpuscular HGB Conc 32 gm/dL (32-36); Mean Corpuscular Hemoglobin 31 pg (26-34); Mean Corpuscular Volume 97 fL (80-100); Monocytes Percent Auto 10.6 % (0.0-11.0); Neutrophils Absolute Auto 6.16 K/uL (1.7-7.0); Neutrophils Percent Auto 68.8 % (42.0-72.0); Platelet Count* 269 K/uL (140-440); RDW Coefficient of Variation % 14.4 % (11.5-15.5); Red Blood Count 2.42 m/uL (4.30-5.90); White Blood Count* 8.95 K/uL (4.50-11.00)
[2023-11-29 07:13] LABS: Albumin* 2.7 g/dL (3.3-5.0); Chloride* 104 mmol/L (96-114); Potassium* 3.6 mmol/L (3.6-5.1); Sodium* 137 mmol/L (135-149)
[2023-11-29 07:15] LABS: Bilirubin Total* 0.3 mg/dL (0.1-1.5); Creatinine* 0.6 mg/dL (0.5-1.5); Est. Creatinine Clearance* 64.89; Estimated Glomerular Filt Rate 100 ml/min
[2023-11-29 07:16] LABS: Alanine Aminotransferase* 20 U/L (4-50); Alkaline Phosphatase* 45 U/L (40-150); Anion Gap 4 mEq/L (7-15); Aspartate Amino Transferase* 20 U/L (12-35); Blood Urea Nitrogen* 24 mg/dL (7-30); Calcium* 7.8 mg/dL (8.4-10.6); Carbon Dioxide* 29 mmol/L (20-32); Glucose* 90 mg/dL (60-115); Total Protein* 5.2 g/dL (6.0-8.3)
[2023-11-29 07:28] LABS: Hemoglobin* 7.5 gm/dL (13.5-17.5); Slide Review Reflex No
--- NOTE | 2023-11-29 07:55 | PM.IMPN1 ---
Progress Note: A&P Assessment and plan (1) Anemia: Problem details: - this is new. Hemoglobin on 08/10/2018 was 16.2 with MCV of 87 and RDW of 13.2. Presently his hemoglobin is 9.3 with MCV of 97 and RDW of 13.2. - Hgb down to 7.2 on 11/28/23; received transfusion of 1U PRBCs on 11/28/23 with increase to 8.2 - PPI initiated 11/27, EGD on 11/27 exhibited ulcer (clipped and biopsied) - Hgb 7.5 on 11/28, patient feeling better and defers another transfusion this morning, would like to repeat Hgb later today Status: Acute (2) Duodenal ulcer: Problem details: - diagnosed on EGD 11/28/23 - biopsies pending, on BID PPI + Sucralfate Status: Acute (3) Right lower lobe pneumonia: Problem details: - blood cultures obtained, currently NGTD - ceftriaxone 1 g IV Q 24 hours, azithromycin 500 mg orally once than 250 mg daily for 4 more doses Status: Acute (4) Asthma exacerbation: Problem details: - prednisone 60 mg orally given in the emergency department, discontinued after ulcer diagnosis - schedule albuterol nebulizers 3 times daily and continue with prn albuterol meter dose inhaler administration. - respiratory therapy consultation: Teach proper administration of meter dose inhaler with spacer, teach appropriate use of Aerobika device. - stable on RA on 11/29/23 Status: Acute (5) Multiple sclerosis, primary progressive: Problem details: - first diagnosed in 2019 by [facility], progressively worsening over time - not receiving active treatment for this Status: Acute (6) Weakness: Problem details: - this has been progressing rather rapidly over course of the past 2 weeks since he has had the onset of his pneumonia symptoms - likely multifactorial from underlying multiple sclerosis, but may be worsening because of the acute illness with the pneumonia, also related to his low hemoglobin - will ask Physical therapy and Occupational therapy to assist with assessment and intervention - initiated discussion with patient and about the possibility of short-term assisted facility transitional care services, considering Status: Acute (7) Chronic pain: Problem details: - known bilateral hip osteoarthritis, pain flare may represent PMR (microcytic anemia and elevated ESR on labs drawn 11/27/23) - Prednisone initiated 11/26, discontinued after ulcer diagnosis Status: Acute Plan - per above - continue inpatient stay for PNA management, medical mgmt of PUD, Hgb monitoring - SCDs and Richard hose for ppx (medical ppx contraindicated given bleed) - Lucila updated in person, questions answered Subjective Date Seen: 11/29/23 Interval history: James was admitted to the hospital on 11/26 for progressive weakness, in addition to a sputum producing cough. He was noted to have pneumonia (presumably community acquired) on admission CXR, Rocephin and Azithromycin initiated. Remains stable on RA. Admission labs also exhibited anemia with a Hemoglobin of 9.3 (unknown recent baseline, per chart review his Hgb was >16 in 2018). Hgb fell to 7.2 on 11/27, s/p 1U PRBCs. EGD on 11/27 exhibited an ulcer. On BID PPI + Sucralfate. Exam Narrative: Exam Narrative: GEN: Alert and oriented, nontoxic HEENT: EOMIs bilaterally, no scleral icterus, mild conjunctival pallor CV: RRR, No concerning murmurs R: No wheezing, mild bibasilar rhonchi Ext: wearing Richard Hose bilaterally Skin: No concerning skin lesions or rashes on exposed skin Neuro: Appropriate for comorbidities Psych: Appropriate Const: Vital Signs, click to edit/add: Vital Signs - 24 hr 11/28/23 08:18 11/28/23 11:22 11/28/23 11:40 Temperature 99.5 F 97.6 F 97.9 F Pulse Rate 80 69 Pulse Rate [Pulse Oximeter] 88 Respiratory Rate 18 18 20 Blood Pressure 112/74 112/71 Blood Pressure [Le ft Arm] 112/67 Blood Pressure [Ri ght Arm] Pulse Oximetry 99 93 92 Oxygen Delivery Me thod Room Air 11/28/23 12:25 11/28/23 12:25 11/28/23 15:00 Temperature 97.8 F 99.3 F Pulse Rate 84 86 Pulse Rate [Pulse Oximeter] 86 Respiratory Rate 18 20 16 Blood Pressure 109/68 124/84 Blood Pressure [Le ft Arm] 138/81 Blood Pressure [Ri ght Arm] Pulse Oximetry 92 95 91 Oxygen Delivery Me thod Room Air 11/28/23 15:00 11/28/23 19:00 11/28/23 22:50 Temperature 98.7 F 98.1 F Pulse Rate Pulse Rate [Pulse Oximeter] 73 74 Respiratory Rate 18 16 12 Blood Pressure Blood Pressure [Le ft Arm] 106/62 103/64 Blood Pressure [Ri ght Arm] Pulse Oximetry 90 93 94 Oxygen Delivery Me thod Room Air Room Air Room Air 11/28/23 23:41 11/28/23 23:42 11/29/23 01:47 Temperature 98.1 F Pulse Rate Pulse Rate [Pulse Oximeter] 74 78 Respiratory Rate 16 16 16 Blood Pressure Blood Pressure [Le ft Arm] Blood Pressure [Ri ght Arm] 113/62 Pulse Oximetry 94 94 Oxygen Delivery Me thod Room Air Room Air 11/29/23 03:15 Temperature 98.1 F Pulse Rate Pulse Rate [Pulse Oximeter] Respiratory Rate Blood Pressure Blood Pressure [Le ft Arm] Blood Pressure [Ri ght Arm] Pulse Oximetry Oxygen Delivery Me thod Labs Labs: Laboratory Results - last 24 hr 11/28/23 11/28/23 11/29/23 07:25 16:25 06:18 WBC 8.95 RBC 2.42 L Hgb 8.3 L 7.5 L* Hct 23.5 L MCV 97 MCH 31 MCHC 32 RDW Coeff of Danilo 14.4 Plt Count 269 Neut % (Auto) 68.8 Lymph % (Auto) 19.6 L [place] % (Auto) 10.6 Eos % (Auto) 0.0 Baso % (Auto) 0.1 Neut # (Auto) 6.16 Lymph # (Auto) 1.80 [place] # (Auto) 0.90 Eos # (Auto) 0.00 Baso # (Auto) 0.01 Abs Immat Gran (auto) 0.08 Imm/Tot Granulo (auto) 0.9 Sodium 137 Potassium 3.6 Chloride 104 Carbon Dioxide 29 Anion Gap 4 L BUN 24 Creatinine 0.6 Estimated Creat Clear 64.89 Estimated GFR 100 Glucose 90 Calcium 7.8 L Total Bilirubin 0.3 AST 20 ALT 20 Alkaline Phosphatase 45 Total Protein 5.2 L Albumin 2.7 L Blood Type O Positive Antibody Screen NEGATIVE Crossmatch (AHG) See Detail
[2023-11-29] MEDS: TRAMADOL HCL 50 MG TABLET PO ×3 (08:35→20:38)
[2023-11-29] MEDS: FLUOXETINE HCL 20 MG CAPSULE 40 MG PO (08:35)
[2023-11-29] MEDS: ALBUTEROL SULFATE 2.5 MG/3 ML VIAL.NEB NEB ×2 (08:35→20:39)
[2023-11-29] MEDS: SODIUM CHLORIDE 0.9 % (FLUSH) 10 ML SYRINGE 5 ML IVF ×2 (08:36→20:43)
[2023-11-29] MEDS: MONTELUKAST 10 MG TABLET PO (08:36)
[2023-11-29] MEDS: AZITHROMYCIN 250 MG TABLET PO (08:36)
[2023-11-29] MEDS: cefTRIAXone 1 GM in 0.9 % SODIUM CHLORIDE Mini-bag 100 ML IVPB (08:36)
[2023-11-29] MEDS: diazePAM 5 MG TABLET PO ×2 (11:54→22:02)
[2023-11-29 12:21] LABS: Hemoglobin* 7.5 gm/dL (13.5-17.5)
[2023-11-30] VITALS (8 sets, daily range): BP systolic 92–137; BP diastolic 66–94; PULSE 68–95; RESP 14–18; TEMP 36.7–37.1; O2SAT 91–94
[2023-11-30] MEDS: OXYCODONE 5 MG TABLET PO ×3 (00:43→16:37)
[2023-11-30] MEDS: OMEPRAZOLE 20 MG CAPSULE DR PO ×2 (06:35→20:44)
[2023-11-30] MEDS: SUCRALFATE 1 GM TABLET PO ×4 (06:36→20:45)
--- NOTE | 2023-11-30 06:59 | PC.NURSE ---
End of shift [id number]: A&O pleasant and cooperative. VSS w/ sats >90% on RA. Rating pain 04/03. See eMAR for interventions. Turn and repo. Inc of urine. Pt calls when needs to be changed. Pt able to sleep in between cares. ?
[2023-11-30 07:20] LABS: Basophils Absolute Auto 0.01 K/uL (0.00-0.30); Basophils Percent Auto 0.1 % (0.0-3.0); Eosinophils Absolute Auto 0.02 K/uL (0.00-0.50); Eosinophils Percent Auto 0.2 % (0.0-7.0); Hematocrit 26.2 % (37.0-53.0); Hemoglobin* 8.6 gm/dL (13.5-17.5); Immature Granulocytes Abs Auto 0.09 K/uL (0.00-0.30); Lymphocytes Percent Auto 17.9 % (20-44); Mean Corpuscular HGB Conc 33 gm/dL (32-36); Mean Corpuscular Hemoglobin 31 pg (26-34); Mean Corpuscular Volume 95 fL (80-100); Monocytes Percent Auto 11.1 % (0.0-11.0); Neutrophils Absolute Auto 6.42 K/uL (1.7-7.0); Neutrophils Percent Auto 69.7 % (42.0-72.0); Platelet Count* 289 K/uL (140-440); RDW Coefficient of Variation % 15.9 % (11.5-15.5); Red Blood Count 2.77 m/uL (4.30-5.90); White Blood Count* 9.21 K/uL (4.50-11.00)
[2023-11-30 07:23] LABS: Slide Review Reflex No
[2023-11-30 07:24] LABS: Chloride* 103 mmol/L (96-114); Potassium* 3.4 mmol/L (3.6-5.1); Sodium* 134 mmol/L (135-149)
[2023-11-30 07:27] LABS: Creatinine* 0.5 mg/dL (0.5-1.5); Est. Creatinine Clearance* 64.89; Estimated Glomerular Filt Rate 106 ml/min
[2023-11-30 07:28] LABS: Anion Gap 3 mEq/L (7-15); Blood Urea Nitrogen* 16 mg/dL (7-30); Calcium* 7.7 mg/dL (8.4-10.6); Carbon Dioxide* 28 mmol/L (20-32); Glucose* 82 mg/dL (60-115)
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
--- NOTE | 2023-11-30 09:26 | XR_ITS ---
Patient: ANNI GARCIA Facility:?[facility] Patient ID:?[id number] Site Patient ID:?[id number]. Site :?[id number] Study:?XRay-Chest PORTABLE-11/30/2023 12:47:09 PM Ordering Physician:?DR. DANIELLE Final Report: INDICATION: Follow-up pneumonia TECHNIQUE: Single view chest. FINDINGS: Ectasia of the descending thoracic aorta. Low lung volumes. Bandlike basilar opacities probably reflect atelectasis/infiltrates. No effusion or pneumothorax. Dictated by Marisel Briones MD @ 11/30/2023 2:08:10 PM Signed by:?Marisel Briones MD @11/30/2023 2:08:10 PM (Electronic Signature)
[2023-11-30] MEDS: FLUOXETINE HCL 20 MG CAPSULE 40 MG PO (09:54)
[2023-11-30] MEDS: ACETAMINOPHEN 325 MG TABLET 650 MG PO ×3 (09:55→20:44)
[2023-11-30] MEDS: TRAMADOL HCL 50 MG TABLET PO ×3 (09:56→20:45)
[2023-11-30] MEDS: AZITHROMYCIN 250 MG TABLET PO (09:56)
[2023-11-30] MEDS: MONTELUKAST 10 MG TABLET PO (09:57)
[2023-11-30] MEDS: SODIUM CHLORIDE 0.9 % (FLUSH) 10 ML SYRINGE 5 ML IVF ×2 (09:58→20:45)
[2023-11-30] MEDS: cefTRIAXone 1 GM in 0.9 % SODIUM CHLORIDE Mini-bag 100 ML IVPB (09:58)
[2023-11-30] MEDS: ALBUTEROL SULFATE 2.5 MG/3 ML VIAL.NEB NEB ×4 (09:58→20:46)
[2023-11-30] MEDS: lidocaine HCL 2 % JELLY (TOP) STERILE 6 ML UR (15:33)
--- NOTE | 2023-11-30 18:15 | PC.NURSE ---
shift note: pt incont multiple times with brief changes and linens. Pt opted for ang placement. ang placed after urojet lido inserted @ 1600. small amount of blood in tube after insertion but urine clear straw color after. pt had 400cc urine in bag right after insertion. Pt medicated for hip pain with prn oxycodone x1 with relief. Pt up in wc and recliner meals with trista. LS with rhonci mid/lower rt lung and audible exp wheezing. pt maintains 91% on RA. Pt using IS througout the day. wet cough with moderate to large amounts of yellow phlegm. Pt had moderate tarry stool.
[2023-11-30] MEDS: GABAPENTIN 300 MG CAPSULE PO (20:45)
[2023-12-01 03:34] VITALS: RESP 20
[2023-12-01 04:02] VITALS: BP 112/64; PULSE 84; RESP 20; TEMP 37; O2SAT 91
[2023-12-01] MEDS: OXYCODONE 5 MG TABLET PO ×2 (04:05→10:54)
[2023-12-01] MEDS: OMEPRAZOLE 20 MG CAPSULE DR PO (06:23)
[2023-12-01] MEDS: SUCRALFATE 1 GM TABLET PO ×2 (06:23→12:46)
[2023-12-01 06:25] LABS: Basophils Percent Auto 0.1 % (0.0-3.0); Eosinophils Percent Auto 0.2 % (0.0-7.0); Hemoglobin* 8.6 gm/dL (13.5-17.5); Immature Granulocytes Pct Auto 0.7 %; Lymphocytes Percent Auto 11.4 % (20-44); Mean Corpuscular HGB Conc 33 gm/dL (32-36); Mean Corpuscular Hemoglobin 31 pg (26-34); Mean Corpuscular Volume 95 fL (80-100); Monocytes Percent Auto 9.1 % (0.0-11.0); Neutrophils Percent Auto 78.5 % (42.0-72.0); Platelet Count* 332 K/uL (140-440); RDW Coefficient of Variation % 15.4 % (11.5-15.5); Red Blood Count 2.74 m/uL (4.30-5.90); White Blood Count* 11.03 K/uL (4.50-11.00)
[2023-12-01 06:26] LABS: Chloride* 103 mmol/L (96-114); Potassium* 3.4 mmol/L (3.6-5.1); Sodium* 135 mmol/L (135-149)
[2023-12-01 06:27] LABS: Slide Review Reflex No
[2023-12-01 06:28] LABS: Creatinine* 0.5 mg/dL (0.5-1.5); Est. Creatinine Clearance* 64.89; Estimated Glomerular Filt Rate 106 ml/min
[2023-12-01 06:29] LABS: Blood Urea Nitrogen* 14 mg/dL (7-30); Carbon Dioxide* 29 mmol/L (20-32); Glucose* 92 mg/dL (60-115)
[2023-12-01 06:32] LABS: Anion Gap 3 mEq/L (7-15)
--- NOTE | 2023-12-01 06:35 | PC.NURSE ---
End of shift [id number]: A&O pleasant and cooperative. VSS w/ sats >90% on RA. Rating pain 04/03. See eMAR for interventions. Turn and repo. Rodriguez in place and draining. Calls to be repositioned.
[2023-12-01] MEDS: ACETAMINOPHEN 325 MG TABLET 650 MG PO (08:33)
[2023-12-01] MEDS: FLUOXETINE HCL 20 MG CAPSULE 40 MG PO (08:33)
[2023-12-01] MEDS: MONTELUKAST 10 MG TABLET PO (08:33)
[2023-12-01] MEDS: TRAMADOL HCL 50 MG TABLET PO (08:34)
[2023-12-01] MEDS: AZITHROMYCIN 250 MG TABLET PO (08:34)
[2023-12-01] MEDS: cefTRIAXone 1 GM in 0.9 % SODIUM CHLORIDE Mini-bag 100 ML IVPB (08:34)
[2023-12-01 09:00] VITALS: BP 111/74; PULSE 79; RESP 20; TEMP 36.6; O2SAT 92
[2023-12-01] MEDS: 0.9 % SODIUM CHLORIDE 250 ml IV (09:00)
[2023-12-01] MEDS: SODIUM CHLORIDE 0.9 % (FLUSH) 10 ML SYRINGE 5 ML IVF (10:51)
[2023-12-01 11:00] VITALS: BP 89/65; PULSE 75; RESP 20; TEMP 36.6; O2SAT 93
[2023-12-01] MEDS: ALBUTEROL SULFATE 2.5 MG/3 ML VIAL.NEB NEB (12:47)
--- NOTE | 2023-12-01 13:03 | PM.DS1 ---
DS: Providers Provider Date Seen: 12/01/23 Date of admission: 11/27/23 17:19 Primary care physician: Rosemary Serra MD Admitting Clinician: Alfred Alegria MD Consults: PT, OT, SW, RT Attending Physician on discharge: Leeann Baker MD Date of Discharge: 12/01/23 DS: Diagnosis Discharge Diagnosis (1) Anemia: Status: Acute Problem details: - this is new. Hemoglobin on 08/10/2018 was 16.2 with MCV of 87 and RDW of 13.2 - 11/26: Hgb is 9.3 with MCV of 97 and RDW of 13.2 - 11/27: Hgb down to 7.2; received transfusion of 1U PRBCs on 11/28/23 with increase to 8.2, PPI initiated, EGD exhibited ulcer (clipped/biopsied: pathology pending) - 11/28: Hgb 7.5, patient feeling better and initially defers another transfusion - repeat hemoglobin 7.5, transfused 2nd U of PRBCs on 11/28 - 11/29 and 11/30: Hgb 8.6, BUN normal, no evidence of further bleeding (2) Duodenal ulcer: Status: Acute Problem details: - diagnosed on EGD 11/28/23 - biopsies pending, on BID PPI + Sucralfate (3) Right lower lobe pneumonia: Status: Acute Problem details: - blood cultures NGTD - completed 5 day course of Ceftriaxone + Azithromycin during stay (4) Asthma exacerbation: Status: Acute Problem details: - prednisone 60 mg orally given in the emergency department, discontinued after ulcer diagnosis - tolerated albuterol during stay, did not require supplemental oxygen, RT followed (5) Multiple sclerosis, primary progressive: Status: Acute Problem details: - first diagnosed in 2019 by [facility], progressively worsening over time - not receiving active treatment for this (6) Weakness: Status: Acute Problem details: - this has been progressing rather rapidly over course of the past 2 weeks since he has had the onset of his pneumonia symptoms - likely multifactorial from underlying multiple sclerosis, but may be worsening because of the acute illness with the pneumonia, also related to his low hemoglobin - followed by PT and OT during stay, SNF recommended - appropriate for d/c to [facility] on Friday, 11/30 (7) Chronic pain: Status: Acute Problem details: - known bilateral hip osteoarthritis, pain flare may represent PMR (microcytic anemia and elevated ESR on labs drawn 11/27/23) - Prednisone initiated 11/26, discontinued after ulcer diagnosis - continued home dose of Tramadol with prn Oxycodone, added Gabapentin at HS on 11/29 (8) Neurogenic bladder: Status: Acute Problem details: - patient with chronic incontinence - Rodriguez placed on 11/30/23 and he will discharge with this given Neurological disease DS: Summary Hospital Course Hospital Course: James is a very pleasant 78-year-old man with a history of MS (diagnosed in 2018) who was admitted to the hospital on 11/26 for weakness in the setting of pneumonia and new anemia. Admission chest x-ray revealed a right-sided pneumonia; presumably community-acquired. James completed a 5 day course of Azithromycin + Ceftriaxone, did not require any supplemental oxygen. No evidence of aspiration. He was noted to have a new anemia on admission, workup revealed a duodenal ulcer on EGD. BID Omeprazole and QID Sucralfate initiated, biopsy results pending at time of discharge. He received 2U of PRBCs during stay (Hgb eliud of 7.2, was 8.6 upon discharge). Comorbidities with notable details above. Patient seen by therapies during stay, medically appropriate for SNF discharge on 12/01/23. Status at Discharge Functional status at discharge: wheelchair bound Overall status at discharge: patient is progressing back to baseline Time Spent with Patient Time attestation: Total time spent providing and/or coordinating discharge services: Time spent: Greater than 30 minutes Specific discharge activities: Multidisciplinary team discussions, medication reconcilation, updates to patient and family Exam Narrative: Exam Narrative: GEN: Alert and oriented, nontoxic and sitting up in bed HEENT: Mild conjunctival pallor, EOMIs bilaterally, no scleral icterus CV: RRR, No concerning murmurs R: LCTA bilaterally without concerning wheezing, air movement adequate Skin: No concerning skin lesions or rashes on exposed skin Neuro: Appropriate for MS history Psych: Appropriate Const: Vital Signs, click to edit/add: Vital Signs - 24 hr 11/30/23 15:00 11/30/23 15:00 11/30/23 15:00 Temperature 98.3 F Pulse Rate [Pulse Oximeter] 69 84 Respiratory Rate 18 18 18 Blood Pressure [Le ft Arm] 121/83 Blood Pressure [Ri ght Arm] Pulse Oximetry 91 94 Oxygen Delivery Me thod Room Air Room Air 11/30/23 19:44 11/30/23 23:33 11/30/23 23:36 Temperature 98.2 F 98.8 F Pulse Rate [Pulse Oximeter] 77 83 Respiratory Rate 16 14 14 Blood Pressure [Le ft Arm] 102/66 Blood Pressure [Ri ght Arm] 92/77 Pulse Oximetry 93 92 92 Oxygen Delivery Me thod Room Air Room Air Room Air 12/01/23 03:34 12/01/23 04:02 12/01/23 09:00 Temperature 98.6 F Pulse Rate [Pulse Oximeter] 84 Respiratory Rate 20 20 20 Blood Pressure [Le ft Arm] 112/64 Blood Pressure [Ri ght Arm] Pulse Oximetry 91 92 Oxygen Delivery Me thod Room Air 12/01/23 09:00 12/01/23 11:00 Temperature 97.8 F 97.8 F Pulse Rate [Pulse Oximeter] 79 75 Respiratory Rate 20 20 Blood Pressure [Le ft Arm] 111/74 89/65 L Blood Pressure [Ri ght Arm] Pulse Oximetry 92 93 Oxygen Delivery Me thod Room Air Room Air DS: Data Data Completed and Pending Labs on day of discharge: Labs from last 24 hours 12/01/23 11/28/23 05:46 05:52 WBC 11.03 H RBC 2.74 L Hgb 8.6 L Hct 26.0 L MCV 95 MCH 31 MCHC 33 RDW Coeff of Danilo 15.4 Plt Count 332 Neut % (Auto) 78.5 H Lymph % (Auto) 11.4 L [place] % (Auto) 9.1 Eos % (Auto) 0.2 Baso % (Auto) 0.1 Neut # (Auto) 8.70 H Lymph # (Auto) 1.30 [place] # (Auto) 1.00 H Eos # (Auto) 0.00 Baso # (Auto) 0.00 Abs Immat Gran (auto) 0.10 Imm/Tot Granulo (auto) 0.7 Sodium 135 Potassium 3.4 L Chloride 103 Carbon Dioxide 29 Anion Gap 3 L BUN 14 Creatinine 0.5 Estimated Creat Clear 64.89 Estimated GFR 106 Glucose 92 Calcium 8.0 L RBC Fol Héctor for Serum Cancelled Discharge Plan Discharge Disposition: [facility] Date of Admission: 11/27/23 17:19 Attending Provider on Discharge: Leeann Baker Primary Care Provider: Rosemary Serra Condition: Stable Anticipated Discharge Date/Time: 12/01/23 12:54 Discharge Medications: New sucralfate 1 gram Tablet 1 g PO ACHS 30 Days Qty: 120 0RF gabapentin 300 mg Capsule 300 mg PO HS Qty: 30 0RF omeprazole 20 mg Capsule,Delayed Release(Dr/Ec) 20 mg PO BID@0700,2100 Qty: 60 0RF oxycodone 5 mg Tablet 5 mg PO Q4H PRNQty: 20 0RF Continued montelukast 10 mg tablet 10 mg PO DAILY fluticasone propion-salmeterol [Advair Diskus] 500-50 mcg/dose blister with device 1 inh inhalation BID tramadol 50 mg tablet 50 mg PO TID albuterol sulfate 90 mcg/actuation HFA aerosol inhaler 2 inh inhalation Q4H PRN acetaminophen 650 mg tablet extended release 1,300 mg PO Q8H fluoxetine 40 mg capsule 40 mg PO DAILY cetirizine [Zyrtec] 10 mg tablet 10 mg PO DAILY PRN Discharge Orders: Discharge Order (Routine); Ordered 12/01/23 Ordered By: Leeann Baker Additional Instructions: We will be in touch with biopsy results from your endoscopy. Stay on sucralfate and omeprazole for 1 month. You have completed your course of antibiotics for pneumonia and lungs look great. We have added on gabapentin at night, I am hoping this continues to help with pain and sleep. Activity Level: Activity as Tolerated Activity Detail: per therapies, has MS Discharge Diet: Regular Follow Up Appointments: Provider,Not a Local [Referring] - (See Dr. Serra 1-2 weeks after discharge from SNF for followup) Forms: [facility] Info Instructions Admit to: SNF Discharge Potential: Fair Length of Stay: 30-90 days Can use facility standing orders?: Yes Code Status: DNR/DNI TEDs: Bilateral Knee Rehab Potential: Fair Therapy: Physical Therapy and Occupational Therapy Therapy Orders: Evaluate and Treat Oxygen: No Urinary Catheter: Yes Rodriguez Catheter Tamazight Size: 16 Glucose Checks: n/a Next INR: n/a INR Goal: n/a Lab Orders: CBC and BMP on Friday, 12/04 Orders are good >30 days: Yes Signature: Leeann Baker MD
--- NOTE | 2023-12-01 13:37 | PC.NURSE ---
Addendum entered by Rosa Maria Montoya RN 12/01/23 13:40: discharged @ 1324 Original Note: Discharge: Patient pleasant and cooperative. Up with 2 assist pivot. Vitals stable and WNL. IV removed. Nurse to nurse given to CARINA Santana at [facility]. EMS here around 1220 for patient, patients belongings and wheelchair sent with him, inhalers taken from med room and sent with patient. Discharged @ 1224 via EMS.
--- NOTE | 2023-12-01 15:41 | PC.SOCIAL ---
Discharge planning: Met this morning with pt, and sister in room regarding d/c planning. Provided pt and family with resource list of halfway facilities with their Department of Health ratings and information on where to find these ratings online. and pt both are requesting short term rehab placement at [facility] in [place]. Sister lives on this campus and pt really wants to remain in [place]. This is the only halfway facility in [place]. Called and secure emailed information to [facility]. Received call back from [facility] at 1:05pm stating they can accept pt to a private room with shared bathroom today if he can arrive before 2:00pm. Met with pt who is pleased with this plan and requested to be discharged today to [facility] by ambulance. Called to update her on this plan, but she did not answer the phone. Message was left and call back requested. Met with pt who is aware social studies teacher did not reach and requested social studies teacher call his sister, Priscilla. Called sister who is aware and pleased with this plan. Priscilla states she will update . All discharge information was sent to [facility] and PAS was completed and submitted [id number]. Pt met criteria for stretcher transport and was discharged to [facility] for rehab by stretcher.
== END 2023-12-01 13:24 | DRG 811 ==
LOC: ED 14:51 → MEDSURG 15:13
PROVIDERS: Family Medicine; Admitting Provider Internal Medicine; Emergency Provider Emergency Medicine; PCP Family Medicine; Visit Provider Internal Medicine
DX: D62 Acute posthemorrhagic anemia (principal); J18.1 Lobar pneumonia, unspecified organism; K26.0 Acute duodenal ulcer with hemorrhage; J45.41 Moderate persistent asthma with (acute) exacerbation; F41.9 Anxiety disorder, unspecified; F32.A Depression, unspecified; G89.29 Other chronic pain; G35 Multiple sclerosis; M16.0 Bilateral primary osteoarthritis of hip; Z87.891 Personal history of nicotine dependence; R53.1 Weakness; N31.8 Other neuromuscular dysfunction of bladder; N39.498 Other specified urinary incontinence
CPT/HCPCS: 00731; 36415; 36430; 43239; 43255; 51701; 71045; 80048; 80053; 80076; 81001; 82270; 82607; 82728; 82746; 82803; 83540; 83550; 83605; 83735; 84100; 84145; 84443; 84484; 85018; 85025; 85027; 85045; 85651; 86140; 86850; 86900; 86901; 86922; 87086; 87186; 87631; 88305; 94640; 97161; 97166; 97530; 97535; 99100; 99284; 99285; A9270; C9113; J0696; J1650; J2270; J2704; J3490; J7030; J7050; J7512; P9016

== ENCOUNTER 2023-12-01 13:20 | Outpatient (CLI) | payer MEDICARE, MEDICAID, SELFPAY | END 2023-12-01 13:21 | disposition home or self-care (01) | LOC: AMB 12-04 08:00 | PROVIDERS: PCP Family Medicine; Visit Provider Family Medicine | DX: D64.9 Anemia, unspecified (principal); G35 Multiple sclerosis; J18.9 Pneumonia, unspecified organism | CPT/HCPCS: A0425; A0428 ==